=== PATIENT | male | born 1995 | race Caucasian/White ===

== ENCOUNTER 2018-07-29 20:27 | Emergency (ER) | payer MEDICAID ==
[~2018-07-29] VITALS: Ht 165.1 cm; Wt 103.0 kg
[~2018-07-29 20:27] MED LIST: AMLO10TA80 PO
[2018-07-29] MEDS ORDERED: IBUPROFEN 600MG TABLET PO ONE (21:30)
[2018-07-29 23:10] VITALS: BP 123/82
== END 2018-07-29 23:15 | disposition home or self-care (01) ==
LOC: ER 22:18
DX: R07.89 Other chest pain (principal); F41.9 Anxiety disorder, unspecified
CPT/HCPCS: 71045; 99284

== ENCOUNTER 2018-09-21 13:55 | Emergency (ER) | payer MEDICAID ==
[~2018-09-21] VITALS: Ht 165.1 cm; Wt 100.0 kg
[2018-09-21 14:03] VITALS: BP 136/78
[2018-09-21] MEDS ORDERED: IBUPROFEN 600MG TABLET PO ONE (18:00)
== END 2018-09-21 18:07 | disposition home or self-care (01) ==
LOC: ER 13:55
DX: M79.602 Pain in left arm (principal); F41.9 Anxiety disorder, unspecified
CPT/HCPCS: 99282

== ENCOUNTER 2022-04-03 18:32 | Emergency (ER) | payer MEDICAID, OTHER ==
[~2022-04-03] VITALS: Ht 165.1 cm; Wt 80.0 kg
[2022-04-03 21:11] LABS: BASOPHILS % 0.6 % (0.0-2.0); EOSINOPHILS % 1.8 % (0.0-5.0); HEMATOCRIT. 46.3 % (42.0-52.0); HEMOGLOBIN. 15.9 g/dL (14.0-18.0); LYMPHOCYTES % 17.2 % (20.0-50.0); MEAN CORPUSCULAR HEMOGLOBIN 30.7 pg (28.0-32.0); MEAN CORPUSCULAR VOLUME 89.4 fL (80.0-94.0); MEAN PLATELET VOLUME 9.4 fl (7.4-10.4); MONOCYTES % 6.9 % (2.0-8.0); NEUTROPHILS % 73.5 % (40.0-76.0); PLATELET 232 x1000/uL (130-400); RED BLOOD CELL COUNT 5.18 mill/uL (4.7-6.1); RED CELL DISTRIBUTION WIDTH 12.7 % (11.6-14.6)
[2022-04-03 21:19] LABS: CHLORIDE 107 mEq/L (98-107)
[2022-04-04 00:31] VITALS: BP 102/60
== END 2022-04-04 00:48 | disposition home or self-care (01) ==
LOC: ER 18:32
DX: R07.89 Other chest pain (principal); F17.290 Nicotine dependence, other tobacco product, uncomplicated; F41.9 Anxiety disorder, unspecified
CPT/HCPCS: 36415; 71045; 80053; 84484; 85025; 93005; 99285